=== PATIENT | female | born 1980 | race Caucasian/White ===

== ENCOUNTER 2017-08-12 14:23 | Emergency (ER) | payer OTHER ==
[2017-08-12] MEDS ORDERED: albuterol inhaler (15:03)
[2017-08-12] MEDS ORDERED: ASPI-496 PO (15:03)
[2017-08-12] MEDS ORDERED: prenatal vitamin (15:03)
[2017-08-12 15:10] LABS: BASOPHILS # (AUTO) 0.02 x10^3/uL (0-0.1); BASOPHILS % (AUTO) 0 % (0-1); EOSINOPHILS # (AUTO) 0.03 x10^3/uL (0-0.4); EOSINOPHILS % (AUTO) 0 % (1-7); LYMPHOCYTES # (AUTO) 1.54 x10^3/uL (1-3.4); LYMPHOCYTES % (AUTO) 17 % (22-44); MD NO; MEAN CORPUSCULAR HEMOGLOBIN 32.1 pg (27.0-34.8); MEAN CORPUSCULAR HGB CONC 33.8 g/dL (32.4-35.8); MEAN PLATELET VOLUME 7.3 fL (7.4-10.4); MONOCYTES # (AUTO) 0.42 x10^3/uL (0.2-0.8); MONOCYTES % (AUTO) 5 % (2-9); NEUTROPHILS % (AUTO) 78 % (42-75); PLATELET COUNT 234 x10^3/uL (130-400); RED BLOOD COUNT 3.97 x10^6/uL (3.82-5.3); RED CELL DISTRIBUTION WIDTH 12.5 % (9.6-15.2)
[2017-08-12 15:11] LABS: ALANINE AMINOTRANSFERASE 49 U/L (12-78); ALBUMIN 3.1 g/dL (3.4-5.0); ANION GAP 8 mmol/L (5-15); CALCIUM 9.4 mg/dL (8.5-10.1); CHLORIDE 109 mmol/L (98-107); CREATININE 0.59 mg/dL (0.55-1.02)
[2017-08-12 15:13] LABS: ALKALINE PHOSPHATASE 44 U/L (45-117); BILIRUBIN,TOTAL 0.2 mg/dL (0.2-1.0); TOTAL PROTEIN 6.8 g/dL (6.4-8.2)
[2017-08-12 16:01] LABS: MICROSCOPIC NOT IND
[2017-08-12 16:03] LABS: CULTURE INDICATED? NO
[2017-08-12 16:29] VITALS: BP 117/68
== END 2017-08-12 16:31 | disposition home or self-care (01) ==
LOC: ED 15:37
DX: F41.1 Generalized anxiety disorder (principal); J45.909 Unspecified asthma, uncomplicated
CPT/HCPCS: 36415; 71046; 80053; 81003; 85025; 93005; 99285

== ENCOUNTER 2017-10-07 07:23 | Outpatient (CLI) | payer OTHER ==
[~2017-10-07] VITALS: Ht 157.5 cm; Wt 72.0 kg
[~2017-10-07 07:23] MED LIST: ASPI-496 PO; albuterol inhaler; prenatal vitamin
[2017-10-07] MEDS ORDERED: TERBUTALINE 1 MG/ML, 1ML ONE (08:18)
[2017-10-07] MEDS: TERBUTALINE 1 MG/ML, 1ML SQ ONE (08:21)
[2017-10-07 08:31] LABS: MICROSCOPIC INDICATED
[2017-10-07] MEDS: LACTATED RINGERS 1,000 ML IVBOLUS ONE (08:55)
[2017-10-07 09:27] LABS: BASOPHILS # (AUTO) 0.02 x10^3/uL (0-0.1); BASOPHILS % (AUTO) 0 % (0-1); EOSINOPHILS # (AUTO) 0.01 x10^3/uL (0-0.4); EOSINOPHILS % (AUTO) 0 % (1-7); LYMPHOCYTES # (AUTO) 1.34 x10^3/uL (1-3.4); LYMPHOCYTES % (AUTO) 15 % (22-44); MD NO; MEAN CORPUSCULAR HEMOGLOBIN 31.8 pg (27.0-34.8); MEAN CORPUSCULAR HGB CONC 33.5 g/dL (32.4-35.8); MEAN CORPUSCULAR VOLUME 94.9 fL (80-100); MEAN PLATELET VOLUME 7.6 fL (7.4-10.4); MONOCYTES # (AUTO) 0.33 x10^3/uL (0.2-0.8); MONOCYTES % (AUTO) 4 % (2-9); NEUTROPHILS # (AUTO) 7.44 x10^3/uL (1.8-6.8); NEUTROPHILS % (AUTO) 81 % (42-75); PLATELET COUNT 176 x10^3/uL (130-400); RED BLOOD COUNT 4.03 x10^6/uL (3.82-5.3); RED CELL DISTRIBUTION WIDTH 12.3 % (9.6-15.2)
[2017-10-07 09:40] LABS: ALANINE AMINOTRANSFERASE 26 U/L (12-78); ALBUMIN 2.8 g/dL (3.4-5.0); ANION GAP 12 mmol/L (5-15); CALCIUM 8.5 mg/dL (8.5-10.1); CHLORIDE 110 mmol/L (98-107)
[2017-10-07] MEDS: LACTATED RINGERS 1,000 ML IV SCH (09:40)
[2017-10-07 09:43] LABS: ALKALINE PHOSPHATASE 56 U/L (45-117); BILIRUBIN,TOTAL 0.2 mg/dL (0.2-1.0); CREATININE 0.68 mg/dL (0.55-1.02); TOTAL PROTEIN 6.3 g/dL (6.4-8.2)
[2017-10-07] MEDS ORDERED: LACTATED RINGERS 1,000 ML IV SCH (10:30)
[2017-10-07 10:42] LABS: MICROSCOPIC NOT IND
== END 2017-10-07 11:26 | disposition home or self-care (01) ==
LOC: LDOP 07:23
PROVIDERS: ATTEND Obstetrics & Gynecology
DX: O62.9 Abnormality of forces of labor, unspecified (principal); Z3A.23 23 weeks gestation of pregnancy
CPT/HCPCS: 36415; 59025; 76817; 80053; 81001; 81003; 82731; 85025; 96360; 96361; 99201; J3105; J7120; G0463